=== PATIENT | male | born 1970 | race Two or more races ===

== ENCOUNTER 2017-09-11 20:44 | Emergency (ER) | payer SELFPAY ==
[2017-09-11] MEDS: LIDOCAINE WITH 8.4% SOD BICARB 3 ML DISP.SYRIN. INJ (21:04)
[2017-09-11] MEDS: DIPHTH,PERTUSS(ACELL),TET TOX 0.5 ML DISP.SYRIN. VAX IM (21:04)
== END 2017-09-11 22:48 | disposition home or self-care (01) ==
LOC: ER 20:44
DX: S81.812A Laceration without foreign body, left lower leg, initial encounter (principal); Y28.8XXA Contact with other sharp object, undetermined intent, initial encounter; Y93.01 Activity, walking, marching and hiking; Y92.89 Other specified places as the place of occurrence of the external cause; Y99.8 Other external cause status
CPT/HCPCS: 73590; 96372; 99284